=== PATIENT | female | born 1965 | race Caucasian/White ===

== ENCOUNTER 2016-10-14 21:32 | Emergency (ER) | payer BC ==
[2016-10-14 21:46] VITALS: BP 140/80
[2016-10-14] MEDS ORDERED: Tetan/Diph/Pertus SYR(Tdap)* 0.5 ML SYR(BOOSTRIX) use SYR IM ONE (21:47)
--- NOTE | 2016-10-14 22:05 | UC ---
Hand/Wrist HPI - HPI Summary HPI Summary: ACCIDENTLY PUT KRYSTYNA OF STAPLE THROUGH (LATERAL DISTAL) LEFT THUMB AT 1PM. REMOVED STAPLE AND BLEEDING CONTROLLED PRIOR TO ARRIVAL. DOES NOT REMEMBER TIME OF LAST TETANUS SHOT, POSSIBLY 12 YEARS AGO. - History Of Current Complaint Chief Complaint: UCLaceration Stated Complaint: STAPLE GUNNED THUMB Time Seen by Provider: 10/14/16 21:41 Hx Obtained From: Patient Hx Last Menstrual Period: 3 weeks ago Onset/Duration: Sudden Onset Severity Initially: Mild Severity Currently: Mild Character Of Pain: Dull Alleviating: Nothing Associated Signs And Symptoms: Positive: Negative - Allergies/Home Medications Allergies/Adverse Reactions: Allergies Allergy/AdvReac Type Severity Reaction Status Date / Time Acetaminophen [From Percocet] Allergy Itching Verified 10/14/16 21:46 Oxycodone [From Percocet] Allergy Itching Verified 10/14/16 21:46 Propoxyphene Allergy Itching Verified 10/14/16 21:46 [From Darvocet-N] Home Medications: Home Medications LevoCETirizine TAB (NF) [Xyzal TAB (NF)] 5 mg PO DAILY 10/14/16 [History Confirmed 10/14/16] PMH/Surg Hx/FS Hx/Imm Hx Previously Healthy: Yes Endocrine History Of: Denies: Diabetes, Thyroid Disease Cardiovascular History Of: Denies: Cardiac Disorders, Hypertension, Pacemaker/ICD Respiratory History Of: Reports: Asthma - MILD ASTHMA, INHAILER AT HOME Denies: COPD GI/ History Of: Denies: Ulcer - Surgical History Surgical History: Yes Surgery Procedure, Year, and Place: breast reduction >26years ago - Family History Known Family History: Negative: Blood Disorder - Social History Occupation: Employed Full-time Lives: With Family Alcohol Use: None Substance Use Type: None Smoking Status (MU): Never Smoked Tobacco - Immunization History Most Recent Tetanus Shot: possibly about 3 years, but pt is unsure Review of Systems Constitutional: Negative Skin: Other - PUNCTURE WOUND LEFT LATERAL DISTAL THUMB, BLEEDING CONTROLLED Eyes: Negative ENT: Negative Respiratory: Negative Cardiovascular: Negative Gastrointestinal: Negative Genitourinary: Negative Motor: Negative Neurovascular: Negative Musculoskeletal: Negative Neurological: Negative Psychological: Negative All Other Systems Reviewed And Are Negative: Yes Physical Exam Triage Information Reviewed: Yes Appearance: Well-Appearing, No Pain Distress, Well-Nourished Vital Signs: Initial Vital Signs Temp 98.1 F 10/14/16 21:39 Pulse 68 10/14/16 21:39 Resp 16 10/14/16 21:39 BP 140/80 10/14/16 21:39 Pulse Ox 99 10/14/16 21:39 Vital Signs Reviewed: Yes Eye Exam: Normal ENT Exam: Normal ENT: Positive: Normal ENT inspection, Hearing grossly normal, Pharynx normal, TMs normal Dental Exam: Normal Neck exam: Normal Neck: Positive: Supple, Nontender, No Lymphadenopathy Respiratory Exam: Normal Respiratory: Positive: Chest non-tender, Lungs clear, Normal breath sounds, No respiratory distress, No accessory muscle use Cardiovascular Exam: Normal Cardiovascular: Positive: RRR, No Murmur, Pulses Normal Abdominal Exam: Normal Abdomen Description: Positive: Nontender, No Organomegaly Musculoskeletal Exam: Normal Musculoskeletal: Positive: Strength Intact, ROM Intact Neurological Exam: Normal Psychological Exam: Normal Psychological: Positive: Normal Response To Family Skin: Positive: Other - PUNCTURE WOUND LEFT LATERAL DISTAL THUMB, BLEEDING CONTROLLED Hand/Wrist Course/Dx - Differential Dx/Diagnosis Differential Diagnosis/HQI/PQRI: Infection, Puncture Wound, Sprain, Strain, Other - TETANUS Provider Diagnoses: LEFT DISTAL THUMB PUNCTURE WOUND. TETANUS PROPHYLAXIS Discharge - Discharge Plan Condition: Stable Disposition: HOME Patient Education Materials: Puncture Wound (ED) Referrals: Amna Summers MD [Primary Care Provider] -
== END 2016-10-14 22:19 | disposition home or self-care (01) ==
LOC: UCEAST 21:32
DX: S61.032A Puncture wound without foreign body of left thumb without damage to nail, initial encounter (principal); W26.8XXA Contact with other sharp object(s), not elsewhere classified, initial encounter; Y93.9 Activity, unspecified; Y92.9 Unspecified place or not applicable; Z88.6 Allergy status to analgesic agent; Z88.5 Allergy status to narcotic agent; Z23 Encounter for immunization
CPT/HCPCS: 90715; 96372; 99201; G0463